=== PATIENT | female | born 1955 | race Caucasian/White ===

== ENCOUNTER 2018-06-10 09:25 | Day surgery (SDC) | payer OTHER ==
[~2018-06-10 09:25] MED LIST: AMOX1TAB12 PO; CIPRO500 MG PO; FLAGYL500MG PO; HYOSCYAMINE0.125 MG PO; INTESTINEX1 CA1 PO; INTESTINEX1 CAP PO; LEVAQUIN750 MG PO; LIPITOR20 MG; PERCOCET 10-3251 TAB PO; PERCOCET 5/3251 TAB PO; TRAM1TAB98 PO; TYLENOL-CODEINE1 TAB PO; [UNRECOGNIZED DRUG - OTHER] PO
== END 2018-06-10 14:20 | disposition home or self-care (01) ==
LOC: AMB-ENDOS 09:25
DX: D12.4 Benign neoplasm of descending colon (principal); K57.30 Diverticulosis of large intestine without perforation or abscess without bleeding; K64.1 Second degree hemorrhoids

== ENCOUNTER 2018-08-05 13:07 | Outpatient (CLI) | payer OTHER ==
[2018-08-19] MEDS ORDERED: DIOVAN160 M1 PO (12:57)
[2018-08-19] MEDS ORDERED: CLONAZEPAM0.5 MG PO (12:58)
== END 2018-08-05 13:14 | disposition home or self-care (01) ==
LOC: NUCLEAR 13:07
DX: M81.0 Age-related osteoporosis without current pathological fracture (principal)

== ENCOUNTER 2018-08-18 16:24 | Outpatient (CLI) | payer OTHER ==
[2018-08-19] MEDS ORDERED: DIOVAN160 M1 PO (12:57)
[2018-08-19] MEDS ORDERED: CLONAZEPAM0.5 MG PO (12:58)
== END 2018-08-18 17:17 | disposition home or self-care (01) ==
LOC: LAB 16:24
DX: D64.89 Other specified anemias (principal); D68.8 Other specified coagulation defects; N39.0 Urinary tract infection, site not specified; E88.89 Other specified metabolic disorders; A49.02 Methicillin resistant Staphylococcus aureus infection, unspecified site; Z76.89 Persons encountering health services in other specified circumstances; I49.8 Other specified cardiac arrhythmias

== ENCOUNTER → 2018-08-22 | Day surgery (SDC) | payer OTHER ==
[~2018-08-22] MED LIST changes: +CLONAZEPAM0.5 MG PO; +DIOVAN160 M1 PO
== END | disposition home or self-care (01) ==
LOC: CIR.AMB 04:50
DX: M23.342 Other meniscus derangements, anterior horn of lateral meniscus, left knee (principal); M23.312 Other meniscus derangements, anterior horn of medial meniscus, left knee; M12.262 Villonodular synovitis (pigmented), left knee; M22.42 Chondromalacia patellae, left knee; M22.12 Recurrent subluxation of patella, left knee

== ENCOUNTER 2021-04-23 17:33 | Inpatient (IN) | payer OTHER ==
[~2021-04-23] VITALS: Ht 160 cm; Wt 86.2 kg
[2021-04-23] MEDS ORDERED: ATACAND16 MG (18:30)
[2021-05-02] MEDS ORDERED: CIPRO500 MG PO (12:35)
[2021-05-02] MEDS ORDERED: PEPCID AC20 MG PO (12:36)
[2021-05-02] MEDS ORDERED: FLAGYL500MG PO (12:36)
[2021-05-02] MEDS ORDERED: INTESTINEX680 M1 PO (12:36)
== END 2021-05-02 15:37 | disposition home or self-care (01) | DRG 392 ==
LOC: ER 17:33 → MEDJ 04-24 00:54
PROVIDERS: ADMIT Internal Medicine; ATTEND Internal Medicine
PROC: 02HV33Z Insertion of Infusion Device into Superior Vena Cava, Percutaneous Approach (ICD-10-PCS; principal; 2021-04-27)
DX: K57.32 Diverticulitis of large intestine without perforation or abscess without bleeding (principal); I10 Essential (primary) hypertension; Z20.822 Contact with and (suspected) exposure to COVID-19; F41.9 Anxiety disorder, unspecified